=== PATIENT | female | born 1995 | race Caucasian/White ===

== ENCOUNTER 2018-07-14 11:24 | Outpatient (CLI) | payer MEDICAID | END 2018-07-14 13:35 | disposition home or self-care (01) | LOC: OBT 11:24 → L-D 11:24 → OBT 13:35 | DX: O40.3XX0 Polyhydramnios, third trimester, not applicable or unspecified (principal); Z3A.36 36 weeks gestation of pregnancy | CPT/HCPCS: 76815; 76818 ==

== ENCOUNTER 2018-07-28 14:09 | Inpatient (IN) | payer MEDICAID ==
[2018-07-28] MEDS ORDERED: LIDOCAINE 1% (MPF) 30 ML INJ INJ (17:30)
[2018-07-28] MEDS ORDERED: IBUPROFEN 600 MG TAB PO (17:30)
[2018-07-28] MEDS ORDERED: CARBOPROST 250 MCG INJ IM (17:30)
[2018-07-28] MEDS ORDERED: MISOPROSTOL 200 MCG TAB PR (17:30)
[2018-07-28] MEDS ORDERED: METHYLERGONOVINE 0.2 MG INJ IM (17:30)
[2018-07-28] MEDS ORDERED: BUTORPHANOL 2 MG INJ IV (17:30)
[2018-07-28] MEDS ORDERED: OXYTOCIN 30 UNITS/LR 500 ML IV ×3 (17:30)
[2018-07-28 17:44] LABS: ADD MAN DIFF? NO
[2018-07-28 17:47] LABS: WHITE BLOOD COUNT 9.4 10^3/ul (4.8-10.8)
[2018-07-28 17:47] LABS: BASOPHILS % 0.3 % (0.0-2.0); EOSINOPHILS # 0.1 10^3/ul (0.0-0.5); HEMOGLOBIN 13.1 g/dl (12.0-16.0); LYMPHOCYTES # 2.5 10^3/ul (0.8-2.9); LYMPHOCYTES % 26.5 % (15.0-51.0); MEAN CORPUSCULAR HEMOGLOBIN 28.4 pg (29.0-33.0); MEAN CORPUSCULAR HGB CONC 32.8 g/dl (32.0-37.0); MEAN CORPUSCULAR VOLUME 86.6 fl (82.0-101.0); MEAN PLATELET VOLUME 11.8 fl (7.4-10.4); MONOCYTE # 0.6 10^3/ul (0.3-0.9); MONOCYTES % 6.5 % (0.0-11.0); NEUTROPHIL # 6.2 10^3/ul (1.6-7.5); NEUTROPHILS % 65.3 % (39.0-77.0); PLATELET COUNT 203 10^3/UL (140-415); RED BLOOD COUNT 4.62 10^6/ul (4.20-5.40); RED CELL DISTRIBUTION WIDTH 13.8 % (11.5-14.5)
[2018-07-28 18:06] LABS: INR 0.84; PROTIME 11.6 Sec (11.9-14.9); PT RATIO 0.9
[2018-07-28] MEDS: LACTATED RINGER'S 1,000 ML IV (18:06)
[2018-07-28 18:07] LABS: PARTIAL THROMBOPLASTIN TIME 28.4 Sec (23.0-35.0)
[2018-07-29] MEDS ORDERED: MISOPROSTOL 200 MCG TAB PR ×2 (00:30→22:30)
[2018-07-29] MEDS ORDERED: LIDOCAINE 1% (MPF) 30 ML INJ INJ (00:30)
[2018-07-29] MEDS ORDERED: CARBOPROST 250 MCG INJ IM ×2 (00:30→22:30)
[2018-07-29] MEDS ORDERED: IBUPROFEN 600 MG TAB PO (00:30)
[2018-07-29] MEDS ORDERED: OXYTOCIN 30 UNITS/LR 500 ML IV ×2 (00:30→22:30)
[2018-07-29] MEDS: LACTATED RINGER'S 1,000 ML IV ×4 (00:36→19:50)
[2018-07-29] MEDS ORDERED: MINERAL OIL LIGHT 10 ML VIAL TOP (04:00)
[2018-07-29] MEDS: MISOPROSTOL 50 MCG CAPSULE PO (11:16)
[2018-07-29 15:35] LABS: RAPID PLASMA REAGIN NONREACTIVE (NR)
[2018-07-29] MEDS: OXYTOCIN 30 UNITS/LR 500 ML IV ×3 (16:36→22:34)
[2018-07-29] MEDS: BUTORPHANOL 2 MG INJ IV (18:11)
[2018-07-29] MEDS ORDERED: MINERAL OIL LIGHT 10 ML VIAL (19:24)
[2018-07-29] MEDS ORDERED: FENTAnyl 2MCG/ML-ROPIV 0.2% 100 ML (20:02)
[2018-07-29] MEDS: METHYLERGONOVINE 0.2 MG INJ IM (21:37)
[2018-07-29] MEDS: MISOPROSTOL 200 MCG TAB VAG (21:58)
[2018-07-29] MEDS: LACTATED RINGER'S 1,000 ML IV* (22:09)
[2018-07-29] MEDS: DEXTROSE 5%-LR 1,000 ML IV (22:09)
[2018-07-29] MEDS ORDERED: ACETAMINOPHEN 325 MG TAB PO (22:30)
[2018-07-29] MEDS ORDERED: DIBUCAINE 1% 30 GM OINT TOP (22:30)
[2018-07-29] MEDS ORDERED: DIPHENHYDRAMINE 50 MG INJ IV ×2 (22:30→23:30)
[2018-07-29] MEDS ORDERED: ONDANSETRON 4 MG INJ IV ×2 (22:30→23:30)
[2018-07-29] MEDS ORDERED: ZOLPIDEM 5 MG TAB PO (22:30)
[2018-07-29] MEDS ORDERED: METHYLERGONOVINE 0.2 MG INJ IM (22:30)
[2018-07-29] MEDS ORDERED: SENNA/DOCUSATE NA (8.6MG/50MG) TAB PO (22:30)
[2018-07-29] MEDS ORDERED: OXYCODONE/ASPIRIN (4.88/325) TAB PO (22:30)
[2018-07-29] MEDS ORDERED: MAGNESIUM HYDROXIDE 30ML CUP PO (22:30)
[2018-07-29] MEDS ORDERED: NALOXONE (0.4 MG/ML) INJ IV (23:30)
[2018-07-29] MEDS: FENTAnyl 2MCG/ML-ROPIV 0.2% 100 ML BAG EPI (23:45)
[2018-07-29] MEDS: MINERAL OIL LIGHT 10 ML VIAL TOP (23:46)
[2018-07-30] MEDS: IBUPROFEN 600 MG TAB PO ×4 (00:50→17:49)
[2018-07-30] MEDS: LACTATED RINGER'S 1,000 ML IV (02:00)
[2018-07-30] MEDS: OXYTOCIN 30 UNITS/LR 500 ML IV (03:48)
[2018-07-30] MEDS: LACTATED RINGER'S 1,000 ML IV* (06:09)
[2018-07-30] MEDS: DEXTROSE 5%-LR 1,000 ML IV (06:09)
[2018-07-30 06:45] LABS: ADD MAN DIFF? NO
[2018-07-30 06:57] LABS: BASOPHILS % 0.2 % (0.0-2.0); EOSINOPHILS % 0.1 % (0.0-7.0); HEMATOCRIT 34.1 % (37.0-47.0); HEMOGLOBIN 11.3 g/dl (12.0-16.0); LYMPHOCYTES # 1.5 10^3/ul (0.8-2.9); LYMPHOCYTES % 6.9 % (15.0-51.0); MEAN CORPUSCULAR HEMOGLOBIN 28.5 pg (29.0-33.0); MEAN CORPUSCULAR HGB CONC 33.1 g/dl (32.0-37.0); MEAN CORPUSCULAR VOLUME 85.9 fl (82.0-101.0); MEAN PLATELET VOLUME 11.7 fl (7.4-10.4); MONOCYTE # 1.2 10^3/ul (0.3-0.9); MONOCYTES % 5.5 % (0.0-11.0); NEUTROPHIL # 18.9 10^3/ul (1.6-7.5); NEUTROPHILS % 86.7 % (39.0-77.0); PLATELET COUNT 166 10^3/UL (140-415); RED BLOOD COUNT 3.97 10^6/ul (4.20-5.40); RED CELL DISTRIBUTION WIDTH 14.1 % (11.5-14.5)
[2018-07-30 06:57] LABS: WHITE BLOOD COUNT 21.8 10^3/ul (4.8-10.8)
[2018-07-30] MEDS: WITCH HAZEL/GLYCERIN PAD PR (15:54)
[2018-07-30] MEDS: LANOLIN HPA 1 PKT TOP (15:54)
[2018-07-30] MEDS: BENZOCAINE 20% 56 ML SPRAY TOP (15:54)
[2018-07-30] MEDS: DOCUSATE SODIUM 100 MG CAP PO (21:50)
[2018-07-31] MEDS: IBUPROFEN 600 MG TAB PO ×3 (05:42→12:19)
[2018-07-31 07:05] LABS: ADD MAN DIFF? NO
[2018-07-31 07:12] LABS: BASOPHILS % 0.3 % (0.0-2.0); EOSINOPHILS # 0.3 10^3/ul (0.0-0.5); EOSINOPHILS % 2.4 % (0.0-7.0); HEMATOCRIT 29.5 % (37.0-47.0); HEMOGLOBIN 9.6 g/dl (12.0-16.0); LYMPHOCYTES # 2.6 10^3/ul (0.8-2.9); LYMPHOCYTES % 21.5 % (15.0-51.0); MEAN CORPUSCULAR HEMOGLOBIN 28.5 pg (29.0-33.0); MEAN CORPUSCULAR HGB CONC 32.5 g/dl (32.0-37.0); MEAN CORPUSCULAR VOLUME 87.5 fl (82.0-101.0); MONOCYTE # 0.7 10^3/ul (0.3-0.9); MONOCYTES % 5.5 % (0.0-11.0); NEUTROPHIL # 8.3 10^3/ul (1.6-7.5); NEUTROPHILS % 69.9 % (39.0-77.0); PLATELET COUNT 147 10^3/UL (140-415); RED BLOOD COUNT 3.37 10^6/ul (4.20-5.40); RED CELL DISTRIBUTION WIDTH 14.7 % (11.5-14.5)
[2018-07-31 07:12] LABS: WHITE BLOOD COUNT 11.9 10^3/ul (4.8-10.8)
[2018-07-31] MEDS: DOCUSATE SODIUM 100 MG CAP PO (08:25)
[2018-07-31] MEDS: DIPHTH/TET/ACEL PERTUSS (ADULT) 0.5 ML VIAL IM* (08:26)
[2018-07-31] MEDS: MEASLES,MUMPS,RUBELLA VACCINE INJ SC* (09:35)
== END 2018-07-31 15:54 | disposition home or self-care (01) | DRG 768 ==
LOC: OBT 14:09 → L-D 14:09 → OBT 16:20 → PP1 07-30 14:19 → L-D 16:20
PROVIDERS: Obstetrics & Gynecology
PROC: 4A1HXCZ Monitoring of Products of Conception, Cardiac Rate, External Approach (ICD-10-PCS; 2018-07-28)
PROC: 10E0XZZ Delivery of Products of Conception, External Approach (ICD-10-PCS; principal; 2018-07-29)
PROC: 0DQR0ZZ Repair Anal Sphincter, Open Approach (ICD-10-PCS; 2018-07-29)
PROC: 3E0234Z Introduction of Serum, Toxoid and Vaccine into Muscle, Percutaneous Approach (ICD-10-PCS; 2018-07-31)
DX: O36.63X0 Maternal care for excessive fetal growth, third trimester, not applicable or unspecified (principal); Z37.0 Single live birth; O70.20 Third degree perineal laceration during delivery, unspecified; Z3A.38 38 weeks gestation of pregnancy; Z23 Encounter for immunization
CPT/HCPCS: 62319; 76815; 76818; 85025; 85610; 85730; 86592; 86850; 86900; 86901; 90715; 99464

== ENCOUNTER 2019-04-28 11:50 | Emergency (ER) | payer MEDICAID | END 2019-04-28 12:34 | disposition home or self-care (01) | LOC: E/R 12:34 | DX: M79.644 Pain in right finger(s) (principal) | CPT/HCPCS: 99283; Z7502 ==